=== PATIENT | male | born 1975 | race Caucasian/White ===

== ENCOUNTER 2019-07-05 17:20 | Inpatient (IN) | payer OTHER ==
[~2019-07-05] VITALS: Ht 190.5 cm; Wt 137.0 kg
[2019-07-05 17:30] VITALS: BP 146/89
[2019-07-05] MEDS ORDERED: ACETAMINOPHEN 325 MG TABLET PO PRN ×2 (19:30)
[2019-07-05] MEDS ORDERED: DOCUSATE SODIUM 283 MG/5 ML MINI-ENEMA PR PRN (20:00)
[2019-07-05] MEDS ORDERED: MAGNESIUM HYDROXIDE SUSPENSION 30 ML UDCUP PO PRN (20:00)
[2019-07-05] MEDS: SENNA 187 MG TABLET PO SCH (21:30)
[2019-07-05] MEDS: DOCUSATE SODIUM 100 MG CAPSULE PO SCH (21:30)
[2019-07-05] MEDS: OxyCODONE HCL 10 MG IR TABLET PO PRN (21:30)
[2019-07-05] MEDS ORDERED: WATER FOR IRRIGATION,STERILE 1000 ML SOLUTION BOTTLE ONE (22:24)
[2019-07-06 01:05] VITALS: BP 119/75
[2019-07-06] MEDS: OxyCODONE HCL 10 MG IR TABLET PO PRN ×4 (01:05→21:27)
[2019-07-06 05:37] VITALS: BP 121/78
[2019-07-06 07:50] VITALS: BP 150/67
[2019-07-06] MEDS: OxyCODONE HCL 5 MG IR TABLET PO PRN ×2 (07:50→17:40)
[2019-07-06] MEDS: MELOXICAM 7.5 MG TABLET PO SCH (07:50)
[2019-07-06] MEDS: ONDANSETRON HCL 4 MG TABLET PO PRN (07:50)
[2019-07-06 08:21] LABS: BASOPHILS % (AUTO) 0.7 % (0.0-2.0); EOSINOPHILS % (AUTO) 4.2 % (1.0-6.0); HEMOGLOBIN 12.7 g/dL (13.5-17.5); LYMPHOCYTES % (AUTO) 13.7 % (22.0-44.0); MEAN CORPUSCULAR HEMOGLOBIN 29.9 pg (26.0-34.0); MEAN CORPUSCULAR HGB CONC 33.4 G/dL (31.0-37.0); MEAN CORPUSCULAR VOLUME 89 fL (80-100); MONOCYTES # (AUTO) 0.6 K/uL (0.1-1.0); MONOCYTES % (AUTO) 8.4 % (2.0-9.0); NEUTROPHILS # (AUTO) 5.4 K/uL (1.8-7.7); PLATELET COUNT (AUTO) 153 K/uL (150-450); RED BLOOD CELL COUNT(AUTO) 4.25 MIL/uL (4.50-5.90); RED CELL DISTRIBUTION WIDTH 13.7 % (11.5-14.5)
[2019-07-06 08:56] LABS: ALANINE AMINOTRANSFERASE 61 U/L (12-78); ALBUMIN 3.1 g/dL (3.4-5.0); ALKALINE PHOSPHATASE 120 U/L (46-116); ANION GAP 9 mmol/L (8-16); ASPARTATE AMINOTRANSFERASE 44 U/L (15-37); BILIRUBIN,TOTAL 0.8 mg/dL (0.1-1.0); CARBON DIOXIDE 27 mmol/L (22-29); CHLORIDE 103 mmol/L (98-107); CREATININE 0.92 mg/dL (0.60-1.30); GLOMERULAR FILTR. RATE CALC > 60 mL/min (>60); GLUCOSE,RANDOM 94 mg/dL (70-110); POTASSIUM 3.9 mmol/L (3.5-5.1); SODIUM SERUM 139 mmol/L (136-145); TOTAL PROTEIN, SERUM 7.2 g/dL (6.4-8.2); UREA NITROGEN, BLOOD 16 mg/dL (7-18)
[2019-07-06] MEDS: ENOXAPARIN SODIUM 40 MG/0.4 ML PF SYRINGE SQ SCH (09:00)
[2019-07-06] MEDS: DOCUSATE SODIUM 100 MG CAPSULE PO SCH ×2 (09:01→21:28)
[2019-07-06] MEDS: ACETAMINOPHEN 325 MG TABLET PO SCH ×2 (09:01→16:48)
[2019-07-06] MEDS: OMEPRAZOLE 20 MG CAPSULE PO SCH ×2 (12:30→21:27)
[2019-07-06] MEDS: SENNA 187 MG TABLET PO SCH (21:28)
[2019-07-07] MEDS: ACETAMINOPHEN 325 MG TABLET PO SCH ×2 (01:00→09:03)
[2019-07-07 02:25] VITALS: BP 116/70
[2019-07-07] MEDS: OxyCODONE HCL 10 MG IR TABLET PO PRN ×5 (02:25→21:14)
[2019-07-07 07:53] VITALS: BP 115/67
[2019-07-07] MEDS: MELOXICAM 7.5 MG TABLET PO SCH (07:55)
[2019-07-07] MEDS: ONDANSETRON HCL 4 MG TABLET PO PRN (08:26)
[2019-07-07] MEDS: OMEPRAZOLE 20 MG CAPSULE PO SCH ×2 (09:03→21:13)
[2019-07-07] MEDS: ENOXAPARIN SODIUM 40 MG/0.4 ML PF SYRINGE SQ SCH (09:03)
[2019-07-07] MEDS: DOCUSATE SODIUM 100 MG CAPSULE PO SCH (09:03)
[2019-07-07] MEDS: POLYETHYLENE GLYCOL 3350 17 GM PACKET PO SCH (14:08)
[2019-07-07 16:05] VITALS: BP 125/77
[2019-07-07] MEDS: OxyCODONE HCL 20 MG ER TABLET PO SCH (21:13)
[2019-07-07] MEDS: DOCUSATE SODIUM 250 MG CAPSULE PO SCH (21:13)
[2019-07-08] VITALS: BP 128/69
[2019-07-08] MEDS: MELOXICAM 7.5 MG TABLET PO SCH (07:39)
[2019-07-08 08:48] VITALS: BP 118/69
[2019-07-08] MEDS: ENOXAPARIN SODIUM 40 MG/0.4 ML PF SYRINGE SQ SCH (09:29)
[2019-07-08] MEDS: POLYETHYLENE GLYCOL 3350 17 GM PACKET PO SCH (09:29)
[2019-07-08] MEDS: OxyCODONE HCL 20 MG ER TABLET PO SCH ×2 (09:30→20:23)
[2019-07-08] MEDS: DOCUSATE SODIUM 250 MG CAPSULE PO SCH ×2 (09:30→20:23)
[2019-07-08] MEDS: OMEPRAZOLE 20 MG CAPSULE PO SCH ×2 (09:30→20:23)
[2019-07-08 16:30] VITALS: BP 121/78
[2019-07-08] MEDS: OxyCODONE HCL 10 MG IR TABLET PO PRN (19:12)
[2019-07-09 00:42] VITALS: BP 140/72
[2019-07-09] MEDS: OMEPRAZOLE 20 MG CAPSULE PO SCH ×2 (08:51→20:10)
[2019-07-09] MEDS: DOCUSATE SODIUM 250 MG CAPSULE PO SCH ×2 (08:51→20:10)
[2019-07-09] MEDS: OxyCODONE HCL 20 MG ER TABLET PO SCH ×2 (08:51→20:11)
[2019-07-09] MEDS: ENOXAPARIN SODIUM 40 MG/0.4 ML PF SYRINGE SQ SCH (08:51)
[2019-07-09] MEDS: MELOXICAM 7.5 MG TABLET PO SCH (08:51)
[2019-07-09] MEDS: POLYETHYLENE GLYCOL 3350 17 GM PACKET PO SCH (08:52)
[2019-07-09 09:00] VITALS: BP 114/73
[2019-07-09 15:32] VITALS: BP 128/84
[2019-07-09] MEDS: OxyCODONE HCL 10 MG IR TABLET PO PRN (15:36)
[2019-07-09 23:21] VITALS: BP 125/80
[2019-07-10] MEDS: OxyCODONE HCL 10 MG IR TABLET PO PRN ×3 (03:55→23:52)
[2019-07-10] MEDS: POLYETHYLENE GLYCOL 3350 17 GM PACKET PO SCH (09:00)
[2019-07-10 09:05] VITALS: BP 117/65
[2019-07-10] MEDS: OMEPRAZOLE 20 MG CAPSULE PO SCH ×2 (09:16→20:38)
[2019-07-10] MEDS: OxyCODONE HCL 20 MG ER TABLET PO SCH ×2 (09:16→20:39)
[2019-07-10] MEDS: ENOXAPARIN SODIUM 40 MG/0.4 ML PF SYRINGE SQ SCH (09:16)
[2019-07-10] MEDS: MELOXICAM 7.5 MG TABLET PO SCH (09:16)
[2019-07-10] MEDS: DOCUSATE SODIUM 250 MG CAPSULE PO SCH ×2 (09:16→20:38)
[2019-07-10 15:29] VITALS: BP 123/74
[2019-07-10] MEDS ORDERED: ENOX40DI9 SQ (16:39)
[2019-07-10] MEDS ORDERED: DOCU-342 PO (16:40)
[2019-07-10] MEDS ORDERED: OXYC20 PO (16:40)
[2019-07-10] MEDS ORDERED: MELO-107 PO (16:41)
[2019-07-10] MEDS ORDERED: POLY17PO29 PO (16:41)
[2019-07-10] MEDS ORDERED: OMEP20 PO (16:41)
[2019-07-10 23:52] VITALS: BP 123/83
[2019-07-11 07:35] VITALS: BP 118/74
[2019-07-11] MEDS: MELOXICAM 7.5 MG TABLET PO SCH (07:35)
[2019-07-11] MEDS: OxyCODONE HCL 10 MG IR TABLET PO PRN ×2 (07:35→16:01)
[2019-07-11] MEDS: ENOXAPARIN SODIUM 40 MG/0.4 ML PF SYRINGE SQ SCH (08:57)
[2019-07-11] MEDS: OMEPRAZOLE 20 MG CAPSULE PO SCH ×2 (08:57→20:46)
[2019-07-11] MEDS: OxyCODONE HCL 20 MG ER TABLET PO SCH ×2 (08:57→20:46)
[2019-07-11] MEDS: DOCUSATE SODIUM 250 MG CAPSULE PO SCH ×2 (08:57→20:46)
[2019-07-11] MEDS: POLYETHYLENE GLYCOL 3350 17 GM PACKET PO SCH (09:00)
[2019-07-11 16:00] VITALS: BP 130/54
[2019-07-12 00:42] VITALS: BP 106/61
[2019-07-12] MEDS: OxyCODONE HCL 10 MG IR TABLET PO PRN (00:42)
[2019-07-12] MEDS: MELOXICAM 7.5 MG TABLET PO SCH (07:49)
[2019-07-12 08:25] VITALS: BP 103/64
[2019-07-12] MEDS: OxyCODONE HCL 20 MG ER TABLET PO SCH ×2 (08:25→20:36)
[2019-07-12] MEDS: POLYETHYLENE GLYCOL 3350 17 GM PACKET PO SCH (08:25)
[2019-07-12] MEDS: ACETAMINOPHEN 325 MG TABLET PO PRN ×2 (08:25→19:48)
[2019-07-12] MEDS: ENOXAPARIN SODIUM 40 MG/0.4 ML PF SYRINGE SQ SCH (08:25)
[2019-07-12] MEDS: DOCUSATE SODIUM 250 MG CAPSULE PO SCH ×2 (08:25→20:36)
[2019-07-12] MEDS: OMEPRAZOLE 20 MG CAPSULE PO SCH ×2 (08:26→20:36)
[2019-07-12 16:47] VITALS: BP 131/76
[2019-07-13 01:00] VITALS: BP 101/59
[2019-07-13 07:15] VITALS: BP 122/70
[2019-07-13] MEDS: ACETAMINOPHEN 325 MG TABLET PO PRN (07:15)
[2019-07-13] MEDS: OMEPRAZOLE 20 MG CAPSULE PO SCH ×2 (07:54→20:09)
[2019-07-13] MEDS: ENOXAPARIN SODIUM 40 MG/0.4 ML PF SYRINGE SQ SCH (07:54)
[2019-07-13] MEDS: MELOXICAM 7.5 MG TABLET PO SCH (07:55)
[2019-07-13] MEDS: OxyCODONE HCL 20 MG ER TABLET PO SCH ×2 (07:55→20:09)
[2019-07-13] MEDS: DOCUSATE SODIUM 250 MG CAPSULE PO SCH ×2 (07:55→20:09)
[2019-07-13] MEDS: POLYETHYLENE GLYCOL 3350 17 GM PACKET PO SCH (09:00)
[2019-07-13 15:41] VITALS: BP 124/78
[2019-07-13] MEDS: OxyCODONE HCL 10 MG IR TABLET PO PRN (18:22)
[2019-07-14 01:00] VITALS: BP 123/71
[2019-07-14] MEDS: OxyCODONE HCL 20 MG ER TABLET PO SCH ×2 (01:15→08:17)
[2019-07-14] MEDS: MELOXICAM 7.5 MG TABLET PO SCH (07:32)
[2019-07-14 07:33] VITALS: BP 113/70
[2019-07-14] MEDS: OxyCODONE HCL 10 MG IR TABLET PO PRN ×2 (07:33→18:02)
[2019-07-14] MEDS: OMEPRAZOLE 20 MG CAPSULE PO SCH (08:16)
[2019-07-14] MEDS: ENOXAPARIN SODIUM 40 MG/0.4 ML PF SYRINGE SQ SCH (08:16)
[2019-07-14] MEDS: DOCUSATE SODIUM 250 MG CAPSULE PO SCH (08:16)
[2019-07-14] MEDS: POLYETHYLENE GLYCOL 3350 17 GM PACKET PO SCH (08:21)
[2019-07-14 17:20] VITALS: BP 107/68
[2019-07-15] MEDS: DOCUSATE SODIUM 250 MG CAPSULE PO SCH ×3 (01:15→22:13)
[2019-07-15] MEDS: OMEPRAZOLE 20 MG CAPSULE PO SCH ×3 (01:15→22:13)
[2019-07-15 01:44] VITALS: BP 112/67
[2019-07-15] MEDS: MELOXICAM 7.5 MG TABLET PO SCH (07:35)
[2019-07-15 07:40] VITALS: BP 108/74
[2019-07-15] MEDS: OxyCODONE HCL 10 MG IR TABLET PO PRN ×2 (07:40→19:40)
[2019-07-15] MEDS: ASPIRIN 325 MG TABLET PO SCH (08:31)
[2019-07-15] MEDS: OxyCODONE HCL 20 MG ER TABLET PO SCH ×2 (08:31→22:14)
[2019-07-15] MEDS: POLYETHYLENE GLYCOL 3350 17 GM PACKET PO SCH (08:33)
[2019-07-15 16:18] VITALS: BP 115/64
[2019-07-15 23:10] VITALS: BP 117/73
[2019-07-16 08:01] VITALS: BP_SYST 104; BP_SYST 115; BP_DIAS 60; BP_DIAS 64
[2019-07-16] MEDS: OxyCODONE HCL 10 MG IR TABLET PO PRN (08:01)
[2019-07-16] MEDS: MELOXICAM 7.5 MG TABLET PO SCH (08:01)
[2019-07-16] MEDS: DOCUSATE SODIUM 250 MG CAPSULE PO SCH (08:04)
[2019-07-16] MEDS: ASPIRIN 325 MG TABLET PO SCH (08:04)
[2019-07-16] MEDS: OMEPRAZOLE 20 MG CAPSULE PO SCH (08:04)
[2019-07-16] MEDS: POLYETHYLENE GLYCOL 3350 17 GM PACKET PO SCH (09:00)
[2019-07-16] MEDS: OxyCODONE HCL 20 MG ER TABLET PO SCH (09:02)
[2019-07-16] MEDS ORDERED: OXYC5 PO (09:23)
[2019-07-16] MEDS ORDERED: ASPI-989 PO (09:23)
== END 2019-07-16 11:15 | disposition home or self-care (01) | DRG 563 ==
LOC: 2WR 17:20
DX: S42.021A Displaced fracture of shaft of right clavicle, initial encounter for closed fracture (principal); S82.141A Displaced bicondylar fracture of right tibia, initial encounter for closed fracture; S92.411A Displaced fracture of proximal phalanx of right great toe, initial encounter for closed fracture; S92.401A Displaced unspecified fracture of right great toe, initial encounter for closed fracture; E66.01 Morbid (severe) obesity due to excess calories; K21.9 Gastro-esophageal reflux disease without esophagitis; Z82.49 Family history of ischemic heart disease and other diseases of the circulatory system; Z83.3 Family history of diabetes mellitus; Z68.37 Body mass index [BMI] 37.0-37.9, adult
CPT/HCPCS: 87081; 97110; 97150; 97162; 97163; 97166; 97530; 97535; 99366; J1650; Q0162